=== PATIENT | male | born 1995 | race Caucasian/White ===

== ENCOUNTER 2019-06-26 05:09 | Emergency (ER) | payer BC ==
[~2019-06-26] VITALS: Ht 182.9 cm; Wt 74.8 kg
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
--- NOTE | 2019-06-26 06:15 | NUR ---
Patient discharged to home in stable condition. Written and verbal after care instructions given. Patient verbalizes understanding of instruction. Pt ambulatory with a steady gait
[2019-06-26 06:16] VITALS: BP 131/83
== END 2019-06-26 06:16 | disposition home or self-care (01) ==
LOC: ER 05:09
DX: S09.8XXA Other specified injuries of head, initial encounter (principal); Z88.8 Allergy status to other drugs, medicaments and biological substances; Z88.6 Allergy status to analgesic agent; V49.49XA Driver injured in collision with other motor vehicles in traffic accident, initial encounter; Y93.89 Activity, other specified; Y92.413 State road as the place of occurrence of the external cause; Y99.8 Other external cause status
CPT/HCPCS: 70450-TC; 71045-TC; 72125-TC